=== PATIENT | female | born 1985 | race Caucasian/White ===

== ENCOUNTER 2016-12-05 11:09 | Outpatient (CLI) | payer OTHER | END 2016-12-05 11:10 | disposition home or self-care (01) | DX: Z36 Encounter for antenatal screening of mother (principal) ==

== ENCOUNTER 2017-02-12 07:31 | Outpatient (CLI) | payer OTHER | END 2017-02-12 07:32 | disposition home or self-care (01) | DX: Z36 Encounter for antenatal screening of mother (principal) ==

== ENCOUNTER 2017-03-04 10:31 | Outpatient (CLI) | payer OTHER | END 2017-03-04 10:32 | disposition home or self-care (01) | DX: Z01.812 Encounter for preprocedural laboratory examination (principal); O34.219 Maternal care for unspecified type scar from previous cesarean delivery ==

== ENCOUNTER 2017-03-06 05:24 | Inpatient (IN) | payer OTHER ==
[2017-03-06] MEDS ORDERED: SODIUM CHLORIDE FLUSH 0.9% 10 ML SYRINGE IVP ONE (05:44)
[2017-03-06] MEDS: LACTATED RINGERS 1,000 ML IV SCH ×2 (06:00→20:43)
[2017-03-06] MEDS ORDERED: ONDANSETRON 4 MG/2 ML VIAL IVP SCH (07:00)
[2017-03-06] MEDS ORDERED: ceFAZolin 2 GM/50 ML 50 ML IV SCH (07:00)
[2017-03-06] MEDS ORDERED: CITRIC ACID/SODIUM CITRATE 15 ML UDC PO ONE ×2 (07:45→08:00)
[2017-03-06] MEDS ORDERED: ePHEDrine 50 MG/ML AMP IVP ONE (08:15)
[2017-03-06] MEDS ORDERED: DEXAMETHASONE 4 MG/ML VIAL IVP ONE (08:15)
[2017-03-06] MEDS ORDERED: ONDANSETRON 4 MG/2 ML VIAL IVP ONE (08:15)
[2017-03-06] MEDS ORDERED: MORPHINE PF 5 MG/10 ML AMP EP ONE (08:15)
[2017-03-06] MEDS ORDERED: OXYTOCIN 10 UNIT/ML VIAL IV ONE (08:15)
[2017-03-06] MEDS ORDERED: LACTATED RINGERS 1,000 ML IV ONE (08:30)
[2017-03-06] MEDS: OXYTOCIN/LACTATED RINGERS 250 ML IV ONE ×2 (09:45→15:17)
[2017-03-06] MEDS ORDERED: OXYTOCIN/LACTATED RINGERS 250 ML IV ONE (09:56)
[2017-03-06] MEDS ORDERED: MAGNESIUM HYDROXIDE 2,400 MG/30 ML UDC PO PRN (09:56)
[2017-03-06] MEDS ORDERED: guaiFENesin/DEXTROMETHORPHAN 10 ML UDC PO PRN (10:00)
[2017-03-06] MEDS: NALBUPHINE 20 MG/ML AMP ONE ×2 (10:04→12:59)
[2017-03-06] MEDS: ACETAMINOPHEN 500 MG TABLET PO SCH ×2 (11:23→20:41)
[2017-03-06] MEDS ORDERED: NALBUPHINE 20 MG/ML AMP ONE ×2 (12:55→16:18)
[2017-03-06] MEDS: SIMETHICONE CHEW 80 MG TABLET PO PRN ×2 (12:59→20:41)
[2017-03-06] MEDS: oxyCODONE 5 MG TABLET PO PRN ×2 (12:59→20:41)
[2017-03-06] MEDS ORDERED: METOCLOPRAMIDE 10 MG/2 ML VIAL IVP PRN (17:00)
[2017-03-06] MEDS ORDERED: NALBUPHINE 20 MG/ML AMP IVP PRN (17:00)
[2017-03-06] MEDS ORDERED: NALOXONE 0.4 MG/ML VIAL IVP PRN (17:00)
[2017-03-06] MEDS ORDERED: ONDANSETRON 4 MG/2 ML VIAL IVP PRN (17:00)
[2017-03-06] MEDS ORDERED: OXYTOCIN/LACTATED RINGERS 0 ML IV ONE (20:33)
[2017-03-06] MEDS ORDERED: DOCUSATE SODIUM 100 MG CAPSULE PO SCH (21:00)
[2017-03-06] MEDS: CELECOXIB 100 MG CAPSULE PO SCH (21:31)
[2017-03-06] MEDS: DOCUSATE SODIUM 100 MG CAPSULE PO SCH (21:31)
[2017-03-07] MEDS ORDERED: OXYTOCIN/LACTATED RINGERS 250 ML IV ONE (00:53)
[2017-03-07] MEDS: ACETAMINOPHEN 500 MG TABLET PO SCH ×3 (05:40→22:00)
[2017-03-07] MEDS: oxyCODONE 5 MG TABLET PO PRN ×4 (05:40→20:24)
[2017-03-07] MEDS: SIMETHICONE CHEW 80 MG TABLET PO PRN ×3 (05:48→14:02)
[2017-03-07] MEDS ORDERED: PSEUDOEPHEDRINE 30 MG TABLET PO PRN (07:54)
[2017-03-07] MEDS: DOCUSATE SODIUM 100 MG CAPSULE PO SCH ×2 (09:39→20:59)
[2017-03-07] MEDS: CELECOXIB 100 MG CAPSULE PO SCH ×2 (09:39→20:58)
[2017-03-07] MEDS: CETIRIZINE 10 MG TABLET PO SCH (09:54)
[2017-03-07] MEDS: LACTATED RINGERS 1,000 ML IV SCH ×3 (15:38→15:43)
[2017-03-08] MEDS: oxyCODONE 5 MG TABLET PO PRN ×3 (00:37→09:40)
[2017-03-08] MEDS: ACETAMINOPHEN 500 MG TABLET PO SCH (06:06)
[2017-03-08] MEDS: CELECOXIB 100 MG CAPSULE PO SCH (09:40)
[2017-03-08] MEDS: CETIRIZINE 10 MG TABLET PO SCH (09:41)
[2017-03-08] MEDS: DOCUSATE SODIUM 100 MG CAPSULE PO SCH (09:41)
== END 2017-03-08 11:00 | disposition home or self-care (01) | DRG 765 ==
PROC: 0UB70ZZ Excision of Bilateral Fallopian Tubes, Open Approach (ICD-10-PCS; 2017-03-06)
PROC: 0HB7XZZ Excision of Abdomen Skin, External Approach (ICD-10-PCS; 2017-03-06)
PROC: 10D00Z1 Extraction of Products of Conception, Low, Open Approach (ICD-10-PCS; principal; 2017-03-06 07:30)
DX: O34.211 Maternal care for low transverse scar from previous cesarean delivery (principal); Z68.41 Body mass index [BMI] 40.0-44.9, adult; N85.8 Other specified noninflammatory disorders of uterus; O69.81X0 Labor and delivery complicated by cord around neck, without compression, not applicable or unspecified; O99.214 Obesity complicating childbirth; E66.01 Morbid (severe) obesity due to excess calories; O99.72 Diseases of the skin and subcutaneous tissue complicating childbirth; L91.8 Other hypertrophic disorders of the skin; Z3A.39 39 weeks gestation of pregnancy; Z37.0 Single live birth; Z30.2 Encounter for sterilization